=== PATIENT | female | born 2000 ===

== ENCOUNTER 2022-04-24 21:59 | Outpatient (CLI) | payer OTHER ==
[2022-04-24] MEDS ORDERED: PRENATAL TABLE1 EAC1 PO (23:30)
== END 2022-04-26 08:04 | disposition left against medical advice (07) ==
LOC: OBS/DEL 21:59 → LDR 21:59 → OBS/DEL 04-25 13:05
PROVIDERS: ATTEND Student in an Organized Health Care Education/Training Program
DX: O26.893 Other specified pregnancy related conditions, third trimester (principal); Z3A.33 33 weeks gestation of pregnancy; N93.0 Postcoital and contact bleeding

== ENCOUNTER 2023-02-22 13:20 | Outpatient (CLI) | payer OTHER ==
[~2023-02-22 13:20] MED LIST: PRENATAL TABLE1 EAC1 PO
== END 2023-02-22 13:22 | disposition home or self-care (01) ==
LOC: PRENATAL 13:20
PROVIDERS: ATTEND Obstetrics & Gynecology Maternal & Fetal Medicine
DX: O35.9XX0 Maternal care for (suspected) fetal abnormality and damage, unspecified, not applicable or unspecified (principal); O44.00 Complete placenta previa NOS or without hemorrhage, unspecified trimester; O34.219 Maternal care for unspecified type scar from previous cesarean delivery; Z3A.20 20 weeks gestation of pregnancy

== ENCOUNTER 2023-05-13 14:11 | Outpatient (CLI) | payer OTHER | END 2023-05-13 14:15 | disposition home or self-care (01) | LOC: PRENATAL 14:11 | PROVIDERS: ATTEND Obstetrics & Gynecology Maternal & Fetal Medicine | DX: O26.849 Uterine size-date discrepancy, unspecified trimester (principal); O36.8199 Decreased fetal movements, unspecified trimester, other fetus; Z3A.31 31 weeks gestation of pregnancy ==

== ENCOUNTER 2023-06-28 08:45 | Inpatient (IN) | payer OTHER ==
[~2023-06-28] VITALS: Ht 165.1 cm; Wt 3.2 kg
[2023-06-28 11:42] LABS: HEMATOCRIT 31.2 % (36.0-45.00); HEMOGLOBIN 10.2 g/dL (12.0-15.00); MEAN CELL VOLUME 74.3 fL (80.00-100.00); MEAN CORPUSCULAR HEMOGLOBIN 24.3 pg (27.00-32.0); MEAN CORPUSCULAR HGB CONC 32.7 g/dl (32.0-36.0); PLATELET COUNT 292 K/uL (150-450); RED BLOOD COUNT 4.19 M/uL (4.00-6.00); RED CELL DISTRIBUTION WIDTH 15.1 % (11.5-14.5); URINE APPEARANCE Cloudy; URINE BILIRRUBIN Negative (NEGATIVE); URINE BLOOD Negative; URINE COLOR Yellow; URINE GLUCOSE Negative (NEGATIVE); URINE LEUKOCYTE Trace; URINE NITRATE Negative; URINE PROTEIN Negative (NEGATIVE); URINE UROBILINOGEN 0.2 E.U./dl
[2023-06-28 11:48] LABS: URINE BACTERIA 4699.3 uL (0.0-1933); URINE EPITHELIAL CELLS 130.6 uL (0.0-38.8); URINE RBC 9.3 uL (0.0-20.8); URINE WBC 35.3 uL (0.0-23.2)
[2023-06-28 11:59] LABS: INR < 0.93; PROTHROMBIN TIME 9.4 SECONDS (9.0-11.5)
[2023-06-28 12:08] LABS: BILIRUBIN TOTAL 0.71 mg/dL (0.3-1.2); CALCIUM 9.3 mg/dL (8.5-10.1); CREATININE SERUM 0.55 mg/dL (0.55-1.02); GFR 136.97; GLOBULINA 3.7 G/DL (2.4-3.5); POTASSIUM 4.81 mEq/L (3.5-5.1); TOTAL PROTEIN 6.7 gm/dL (6.4-8.2)
[2023-07-01] MEDS ORDERED: CEFAZOLIN SODIUM 1,000 MG VIAL ONE (22:00)
[2023-07-01] MEDS ORDERED: IRON325 MG PO (22:12)
[2023-07-01] MEDS ORDERED: RINGERS SOLUTION,LACTATED 1,000 ML IV SCH (22:15)
[2023-07-01] MEDS ORDERED: CEFAZOLIN SODIUM 1,000 MG VIAL IV ONE (22:15)
[2023-07-01] MEDS ORDERED: OXYTOCIN 10 UNITS/ML VIAL ONE (22:16)
[2023-07-01] MEDS ORDERED: ERYTHROMYCIN BASE 3.5 GM OINT...G. OP ONE (22:16)
[2023-07-01] MEDS ORDERED: ERYTHROMYCIN BASE 1 GM TUBE OP SCH (23:45)
[2023-07-01] MEDS ORDERED: OXYTOCIN 1,000 ML IV SCH (23:45)
[2023-07-01] MEDS ORDERED: MEPERIDINE HCL/PF 25 MG/ML VIAL IV PRN (23:45)
[2023-07-01] MEDS ORDERED: KETOROLAC TROMETHAMINE 30 MG VIAL IV PRN (23:45)
[2023-07-01] MEDS ORDERED: ONDANSETRON HCL 2 MG/ML VIAL IV PRN (23:45)
[2023-07-01] MEDS ORDERED: CHLORHEXIDINE GLUCONATE 120 ML BOTTLE TOP SCH (23:45)
[2023-07-01] MEDS ORDERED: FAMOTIDINE/PF 20 MG/2 ML VIAL IV SCH (23:45)
[2023-07-01] MEDS ORDERED: PROMETHAZINE HCL 25 MG/ML AMPUL IV PRN (23:45)
[2023-07-02 04:13] LABS: HEMATOCRIT 27.5 % (36.0-45.00); MEAN CELL VOLUME 73.3 fL (80.00-100.00); MEAN CORPUSCULAR HGB CONC 33.1 g/dl (32.0-36.0); PLATELET COUNT 268 K/uL (150-450); RED BLOOD COUNT 3.75 M/uL (4.00-6.00); RED CELL DISTRIBUTION WIDTH 15.1 % (11.5-14.5)
[2023-07-02 04:14] LABS: HEMOGLOBIN 9.1 g/dL (12.0-15.00); MEAN CORPUSCULAR HEMOGLOBIN 24.2 pg (27.00-32.0)
[2023-07-02] MEDS ORDERED: CEFAZOLIN SODIUM 1,000 MG VIAL IV SCH (05:00)
[2023-07-02 07:26] LABS: ABG PH 7.069 (7.35-7.45)
[2023-07-02 07:27] LABS: ABG PO2 8.7 mmHg (80-100); ABG pCO2 77.9 mmHg (35-45); BASE EXCESS -9.8 mmol/l; BICARBONATE 22 mmol/l (23-25); SaO2 4.4 %; Tco2 24.4 mmol/l; o2 21 %
[2023-07-02] MEDS ORDERED: SIMETHICONE 125 MG CAPSULE PO SCH (11:47)
[2023-07-02] MEDS ORDERED: FERROUS SULFATE 325 MG TABLET.EC PO SCH (11:47)
[2023-07-02] MEDS ORDERED: DOCUSATE SODIUM 100MG CAP PO SCH (11:47)
[2023-07-02] MEDS ORDERED: OxyCODONE HCL/APAP UD (PERCOCET) PO PRN (12:00)
[2023-07-02] MEDS ORDERED: IBUprofen 800 MG TABLET PO PRN (12:00)
[2023-07-02 17:34] LABS: HEMATOCRIT 29.6 % (36.0-45.00); HEMOGLOBIN 9.8 g/dL (12.0-15.00); MEAN CELL VOLUME 74.9 fL (80.00-100.00); MEAN CORPUSCULAR HEMOGLOBIN 24.7 pg (27.00-32.0); PLATELET COUNT 286 K/uL (150-450); RED BLOOD COUNT 3.96 M/uL (4.00-6.00)
== END 2023-07-04 17:25 | disposition home or self-care (01) | DRG 788 ==
LOC: LDR 07-01 21:51 → OB/GYN 07-01 21:51 → O/R 07-01 22:18 → OB/GYN 07-01 23:43 → LDR 07-02 08:45 → OB/GYN 07-04 17:25
PROVIDERS: ADMIT General Practice; ATTEND General Practice
PROC: 4A1HXCZ Monitoring of Products of Conception, Cardiac Rate, External Approach (ICD-10-PCS; 2023-07-01)
PROC: 10D00Z1 Extraction of Products of Conception, Low, Open Approach (ICD-10-PCS; principal; 2023-07-01 21:15)
DX: O34.211 Maternal care for low transverse scar from previous cesarean delivery (principal); Z3A.38 38 weeks gestation of pregnancy; Z37.0 Single live birth; Z20.822 Contact with and (suspected) exposure to COVID-19